=== PATIENT | male | born 1955 | race Hispanic/Latino ===

== ENCOUNTER 2024-02-13 23:24 | Emergency (ER) | payer MEDICARE ==
[~2024-02-13] VITALS: Ht 172.7 cm; Wt 90.7 kg
[~2024-02-13 23:24] MED LIST: NAPROSYN500 MG PO; ZITHROMAX500 MG PO
[2024-02-14] MEDS ORDERED: SULFAMETHOXAZOLE W/TRIMETHOPRI 1 COMBO TAB ONE (03:54)
[2024-02-14 04:00] VITALS: BP 112/76
[2024-02-14] MEDS ORDERED: BACTRIM DS1 TAB PO (05:20)
[2024-02-14 05:23] LABS: URINE BILIRUBIN - DIPSTICK Negative (NEGATIVE); URINE BLOOD DIPSTICK Moderate (NEGATIVE); URINE GLUCOSE - DIPSTICK Negative (NEGATIVE); URINE KETONE Negative (NEGATIVE); URINE PH 5.5 (4.5-8.0); URINE PROTEIN - DIPSTICK 100 mg/dL (NEG-TRACE); URINE SPECIFIC GRAVITY <=1.005; URINE UROBILINOGEN - DIPSTICK 0.2 E.U./dL (0.2)
[2024-02-14 05:24] LABS: URINE COLOR Yellow; URINE LEUK ESTERASE Small (NEGATIVE); URINE NITRITE - DIPSTICK Negative (Negative)
[2024-02-14 05:25] LABS: URINE BACTERIA MODERATE hpf; URINE EPITHELIAL CELLS FEW EPI/hpf (0-FEW); URINE RBC 25-50 RBC/hpf (0-5); URINE WBC 50-100 WBC/hpf (0-5)
== END 2024-02-14 04:00 | disposition home or self-care (01) ==
LOC: ED 23:24
PROVIDERS: Family Medicine
DX: N39.0 Urinary tract infection, site not specified (principal)